=== PATIENT | female | born 1950 | race Caucasian/White ===

== ENCOUNTER 2017-10-20 13:50 | Emergency (ER) | payer MEDICARE ==
[~2017-10-20] VITALS: Ht 162.6 cm; Wt 100.0 kg
[~2017-10-20 13:50] MED LIST: ALTOPREV20 MG PO; AMLODIPINE BESY10 MG PO; ANTI-FUNGAL12 TOP; DIOVAN320 MG PO; FLUCONAZOLE150 MG; HYDROCHLOROT12.5 MG PO; OMEPRAZOLE20 M2 PO
[2017-10-20 14:43] LABS: URINE BILIRUBIN - DIPSTICK NEGATIVE (NEGATIVE); URINE BLOOD DIPSTICK SMALL (NEGATIVE); URINE COLOR YELLOW; URINE GLUCOSE - DIPSTICK NEGATIVE (NEGATIVE); URINE KETONE NEGATIVE (NEGATIVE); URINE NITRITE - DIPSTICK NEGATIVE (Negative); URINE PH 5.5 (4.5-8.0); URINE PROTEIN - DIPSTICK NEGATIVE (NEG-TRACE); URINE SPECIFIC GRAVITY <=1.005; URINE UROBILINOGEN - DIPSTICK 0.2 E.U./dL (0.2)
[2017-10-20 14:45] LABS: HEMATOCRIT 40.7 % (37.0-47.0); HEMOGLOBIN 13.3 g/dl (12.0-16.0); IMMATURE GRANULOCYTES 0.5 % (0.0-1.0); MEAN CELL VOLUME 87.2 fL CALC (80.0-100.0); MEAN CORPUSCULAR HGB 28.5 pG CALC (26.0-32.0); MEAN CORPUSCULAR HGB CONC 32.7 g/L CALC (32.0-36.0); NEUT# 4.94 thou/uL (2.00-7.15); RED BLOOD COUNT 4.67 mill/uL (4.20-5.60); RED CELL DISTRI WIDTH 13.2 % (11.5-15.5)
[2017-10-20 14:48] LABS: URINE CLARITY CLOUDY; URINE LEUK ESTERASE SMALL (NEGATIVE)
[2017-10-20 14:55] LABS: URINE BACTERIA MANY hpf; URINE SQUAMOUS EPITHELIAL CELL FEW EPI/hpf (0-FEW)
[2017-10-20 15:47] LABS: ALBUMIN 4.8 g/dL (3.2-5.0); ALKALINE PHOSPHATASE 99 u/l (38-126); ANION GAP 20 (6-22 (CALC)); BILIRUBIN, TOTAL 0.3 mg/dL (0.0-1.4); BUN 10 mg/dL (8-23); BUN/CREATININE RATIO 17 (12-20 (CALC)); CALCIUM 10.6 mg/dL (8.4-10.2); CARBON DIOXIDE 23 mmol/l (22-30); CHLORIDE 107 mmol/l (95-108); CREATININE 0.6 mg/dL (0.5-1.0); GFR > 60 ML/MIN (>=60 (CALC)); GFR FOR AFR.AMER. > 60 ML/MIN (>=60 (CALC)); GLUCOSE 171 mg/dL (82-115); POTASSIUM 3.5 mmol/l (3.5-5.1); SGOT/AST 23 u/l (9-36); SGPT/ALT 31 u/l (11-66); SODIUM 146 mmol/l (137-146)
[2017-10-20 15:59] LABS: MYOGLOBIN 19 ng/mL (0 - 62)
[2017-10-20] MEDS ORDERED: FIORICET PO (16:14)
[2017-10-20] MEDS ORDERED: CIPROFLOXACN500 MG PO (16:14)
[2017-10-20 16:36] VITALS: BP 152/71
== END 2017-10-20 16:39 | disposition home or self-care (01) ==
LOC: ED 13:50
PROVIDERS: Emergency Medicine
DX: R51 Headache (principal); N39.0 Urinary tract infection, site not specified; I10 Essential (primary) hypertension; R11.0 Nausea; H53.8 Other visual disturbances

== ENCOUNTER 2019-11-12 | Emergency (ER) | payer MEDICARE ==
[~2019-11-12] MED LIST changes: +CIPROFLOXACN500 MG PO; +FIORICET PO; +PROLIA60 MG/ML SC
[2019-11-12] MEDS ORDERED: LOVASTATIN20 M1 PO (21:17)
[2019-11-12] MEDS ORDERED: LOSARTAN POTAS100 MG PO (23:47)
== END 2019-11-12 23:50 | disposition home or self-care (01) ==
DX: S93.401A Sprain of unspecified ligament of right ankle, initial encounter (principal); S50.12XA Contusion of left forearm, initial encounter; S00.03XA Contusion of scalp, initial encounter; I10 Essential (primary) hypertension; W18.2XXA Fall in (into) shower or empty bathtub, initial encounter; Y93.E1 Activity, personal bathing and showering; Y92.002 Bathroom of unspecified non-institutional (private) residence as the place of occurrence of the external cause

== ENCOUNTER 2021-08-12 08:24 | Day surgery (SDC) | payer MEDICARE ==
[~2021-08-12] VITALS: Ht 162.6 cm; Wt 95.3 kg
[~2021-08-12 08:24] MED LIST changes: +AMITRIPTYLINE H10 MG PO; +LOSARTAN POTAS100 MG PO; +LOVASTATIN20 M1 PO; +MECLIZINE25 MG PO; +MULTI VIT PO; +REFRESH CELLUVISC IO; +[UNRECOGNIZED DRUG - OTHER] IO; +[UNRECOGNIZED DRUG - REMARK] PO
[2021-08-12 11:02] VITALS: BP 122/60
== END 2021-08-12 10:52 | disposition home or self-care (01) ==
LOC: ENDO 08:24 → ORM 09:30 → ENDO 09:30
PROVIDERS: ATTEND Surgery
PROC: 0DBH8ZX Excision of Cecum, Via Natural or Artificial Opening Endoscopic, Diagnostic (ICD-10-PCS; principal; 2021-08-12)
PROC: 0DBN8ZX Excision of Sigmoid Colon, Via Natural or Artificial Opening Endoscopic, Diagnostic (ICD-10-PCS; 2021-08-12)
DX: D12.0 Benign neoplasm of cecum (principal); D12.5 Benign neoplasm of sigmoid colon; K64.8 Other hemorrhoids; I10 Essential (primary) hypertension